=== PATIENT | male | born 1955 | race Caucasian/White ===

== ENCOUNTER 2017-05-04 08:17 | Day surgery (SDC) | payer OTHER ==
[~2017-05-04 08:17] MED LIST: AMLO10; Aspirin EC81 MG; LISI20; MELA3; OXYM.05NI
[2018-03-06] MEDS ORDERED: VITAMIN B-121000 MCG PO (14:11)
[2018-03-06] MEDS ORDERED: AMLO10 PO (14:12)
[2018-03-06] MEDS ORDERED: LISI20 PO (14:12)
[2018-03-06] MEDS ORDERED: Aspir 8181 MG PO (14:12)
[2018-03-06] MEDS ORDERED: OXYM.05NI (14:13)
[2018-03-06] MEDS ORDERED: Brimonidine Tart5 ML LEFTEYE (14:15)
[2018-03-06] MEDS ORDERED: TIMOLOL MALEATE5 ML LEFTEYE (14:16)
== END 2017-05-04 23:34 | disposition home or self-care (01) ==
LOC: CT 08:17
PROVIDERS: Radiology Diagnostic Radiology
PROC: 0FB13ZX Excision of Right Lobe Liver, Percutaneous Approach, Diagnostic (ICD-10-PCS; principal; 2017-05-04 10:00)
DX: B18.2 Chronic viral hepatitis C (principal); K76.89 Other specified diseases of liver; K74.60 Unspecified cirrhosis of liver; B16.2 Acute hepatitis B without delta-agent with hepatic coma; F17.210 Nicotine dependence, cigarettes, uncomplicated; Z79.899 Other long term (current) drug therapy
CPT/HCPCS: 47000; 77012; 88307; 88313

== ENCOUNTER 2017-05-22 09:25 | Day surgery (SDC) | payer OTHER ==
[2018-03-06] MEDS ORDERED: VITAMIN B-121000 MCG PO (14:11)
[2018-03-06] MEDS ORDERED: AMLO10 PO (14:12)
[2018-03-06] MEDS ORDERED: LISI20 PO (14:12)
[2018-03-06] MEDS ORDERED: Aspir 8181 MG PO (14:12)
[2018-03-06] MEDS ORDERED: OXYM.05NI (14:13)
[2018-03-06] MEDS ORDERED: Brimonidine Tart5 ML LEFTEYE (14:15)
[2018-03-06] MEDS ORDERED: TIMOLOL MALEATE5 ML LEFTEYE (14:16)
== END 2017-05-22 12:47 | disposition home or self-care (01) ==
LOC: CT 09:25
PROVIDERS: Radiology Diagnostic Radiology
PROC: 0FB03ZX Excision of Liver, Percutaneous Approach, Diagnostic (ICD-10-PCS; principal; 2017-05-22 11:00)
DX: C22.0 Liver cell carcinoma (principal); K76.89 Other specified diseases of liver; B18.2 Chronic viral hepatitis C; F17.210 Nicotine dependence, cigarettes, uncomplicated
CPT/HCPCS: 47000; 77012; 88307; 88341; 88342

== ENCOUNTER 2018-03-11 12:18 | Day surgery (SDC) | payer OTHER ==
[~2018-03-11] VITALS: Ht 185.4 cm; Wt 104.2 kg
[~2018-03-11 12:18] MED LIST changes: +AMLO10 PO; +Aspir 8181 MG PO; +Brimonidine Tart5 ML LEFTEYE; +LISI20 PO; +TIMOLOL MALEATE5 ML LEFTEYE; +VITAMIN B-121000 MCG PO
[2018-03-11] MEDS ORDERED: EPCLUSA 400 MG1 EACH (13:06)
== END 2018-03-11 15:10 | disposition home or self-care (01) ==
LOC: ORSCSDS 12:18
PROVIDERS: Internal Medicine Gastroenterology
PROC: 0DB58ZX Excision of Esophagus, Via Natural or Artificial Opening Endoscopic, Diagnostic (ICD-10-PCS; principal; 2018-03-11 14:15)
PROC: 0DB68ZX Excision of Stomach, Via Natural or Artificial Opening Endoscopic, Diagnostic (ICD-10-PCS; principal; 2018-03-11 14:15)
PROC: 0DBL8ZX Excision of Transverse Colon, Via Natural or Artificial Opening Endoscopic, Diagnostic (ICD-10-PCS; principal; 2018-03-11 14:15)
PROC: 0DBM8ZX Excision of Descending Colon, Via Natural or Artificial Opening Endoscopic, Diagnostic (ICD-10-PCS; principal; 2018-03-11 14:15)
PROC: 0DBN8ZX Excision of Sigmoid Colon, Via Natural or Artificial Opening Endoscopic, Diagnostic (ICD-10-PCS; principal; 2018-03-11 14:15)
DX: B19.20 Unspecified viral hepatitis C without hepatic coma (principal); K74.60 Unspecified cirrhosis of liver; K21.0 Gastro-esophageal reflux disease with esophagitis; Z86.010 Personal history of colon polyps; D12.2 Benign neoplasm of ascending colon; D12.3 Benign neoplasm of transverse colon; D37.4 Neoplasm of uncertain behavior of colon; K57.30 Diverticulosis of large intestine without perforation or abscess without bleeding; K64.1 Second degree hemorrhoids; I10 Essential (primary) hypertension; Z87.891 Personal history of nicotine dependence; Z79.899 Other long term (current) drug therapy; Z79.82 Long term (current) use of aspirin
CPT/HCPCS: 88305; 88312; J7120

== ENCOUNTER → 2021-03-01 | Outpatient (CLI) | payer OTHER ==
[~2021-03-01] MED LIST changes: +EPCLUSA 400 MG1 EACH
[2021-03-01 14:29] LABS: Alanine Aminotransfer (ALT/SGP 38 U/L (12-78); Albumin, Blood 3.5 g/dL (3.4-5.0); Albumin/Globulin Ratio 0.8 (0.8-1.8); Alk Phos 87 U/L (50-136); Anion Gap 5 mmol/L (6-16); Aspartate Aminotrans (AST/SGOT 32 U/L (12-37); Blood Urea Nitrogen 11 mg/dL (8-24); CO2, Blood 29 mmol/L (21-32); Calcium, Blood 8.9 mg/dL (8.5-10.1); Chloride, Blood 100 mmol/L (98-108); Creatinine, Blood 0.73 mg/dL (0.60-1.20); Globulin, Blood 4.2 g/dL (2.2-4.0); Glomerular Filtration Rate >60 (60-); Glucose, Blood 157 mg/dL (70-99); Potassium, Blood 3.6 mmol/L (3.5-5.5); Sodium, Blood 134 mmol/L (136-145); Total Protein, Blood 7.7 g/dL (6.4-8.2)
== END | disposition home or self-care (01) ==
LOC: LAB SHORT 12:23
PROVIDERS: Family Medicine
DX: I10 Essential (primary) hypertension (principal)
CPT/HCPCS: 80053

== ENCOUNTER → 2021-06-07 | Outpatient (CLI) | payer OTHER ==
[2021-06-07 13:47] LABS: BASOPHILS ABSOLUTE AUTO 0.04 K/mm3 (0.00-0.23); BASOPHILS PERCENT AUTO 1 % (0-2); EOSINOPHILS ABSOLUTE AUTO 0.27 K/mm3 (0.00-0.68); EOSINOPHILS PERCENT AUTO 6 % (0-6); Hematocrit 47.6 % (37.0-53.0); Hemoglobin 16.1 g/dL (13.5-17.5); IMMATURE GRAN ABSOLUTE AUTO 0.01 K/mm3 (0.00-0.10); IMMATURE GRAN PERCENT AUTO 0 % (0-1); LYMPHOCYTES ABSOLUTE AUTO 1.24 K/mm3 (0.84-5.20); LYMPHOCYTES PERCENT AUTO 28 % (21-46); MONOCYTES ABSOLUTE AUTO 0.46 K/mm3 (0.16-1.47); MONOCYTES PERCENT AUTO 10 % (4-13); Mean Corpuscular HGB 31.4 pg (26.0-34.0); Mean Corpuscular HGB Conc 33.8 g/dL (31.5-36.5); Mean Corpuscular Volume 93 fL (80-100); Mean Platelet Volume 10.7 fL (9.1-12.4); NEUTROPHILS ABSOLUTE AUTO 2.46 K/mm3 (1.96-9.15); NEUTROPHILS PERCENT AUTO 55 % (41-73); Platelet Count 173 K/mm3 (150-400); RDW Coefficient Variation 12.3 % (11.7-14.2); RDW Standard Deviation 42.9 fL (35.1-46.3); Red Blood Cell Count 5.12 M/mm3 (4.30-5.90); White Blood Cell Count 4.48 K/mm3 (4.00-11.30)
[2021-06-07 18:18] LABS: Prostate Specific Antigen 0.743 ng/mL (0.000-4.000)
[2021-06-08 10:11] LABS: HIV AB/P24 AG SCREEN Non Reactive (Non Reactive)
== END ==
LOC: LAB SHORT 10:00
PROVIDERS: Family Medicine
DX: Z12.5 Encounter for screening for malignant neoplasm of prostate (principal); Z11.4 Encounter for screening for human immunodeficiency virus [HIV]; R73.09 Other abnormal glucose; E11.9 Type 2 diabetes mellitus without complications; Z79.899 Other long term (current) drug therapy
CPT/HCPCS: 83036; 85025; G0103

== ENCOUNTER → 2021-11-28 | Outpatient (CLI) | payer OTHER ==
[2021-11-28 17:19] LABS: Cholesterol 166 mg/dL (50-200); HDL Cholesterol 33 mg/dL (>39); LDL/HDL RATIO 3.3; Low Density Lipoprotein Chol 108 mg/dL (0-110); Triglycerides 124 mg/dL (30-160); Very Low Density Lipoprot Chol 24 mg/dL (6-32)
== END | disposition home or self-care (01) ==
LOC: LAB 12:47 → LAB SHORT 12:47
PROVIDERS: Family Medicine
DX: E11.9 Type 2 diabetes mellitus without complications (principal)
CPT/HCPCS: 36415; 80061